=== PATIENT | male | born 1950 | race Caucasian/White ===

== ENCOUNTER 2023-02-01 10:20 | Emergency (ER) | payer MEDICARE, OTHER ==
[2023-02-01 10:47] VITALS: PULSE 98
[2023-02-01] MEDS ORDERED: Sodium Chloride 0.9% 10 ML Syringe FLUSH PRN (11:11)
[2023-02-01 11:27] LABS: HEMATOCRIT 41.7 % (38.4-49.7); MEAN CORPUSCULAR HEMOGLOBIN 30.8 pg (31.6-35.5); MEAN CORPUSCULAR HGB CONC 33.6 g/dL (31.6-35.5); MEAN CORPUSCULAR VOLUME 91.9 fL (81.4-99.0); RED BLOOD CELL COUNT 4.54 M/uL (4.14-5.76); WHITE BLOOD CELL COUNT,WBC 9.1 K/uL (3.2-11.0)
[2023-02-01 11:53] LABS: CALCIUM 9.1 mg/dL (8.5-10.1); CREATININE 1.4 mg/dL (0.8-1.3); EST CRCL DRUG DOSING (CG) 46.99 mL/min; MAGNESIUM 1.8 mg/dL (1.8-2.4); POTASSIUM,K 3.3 mmol/L (3.6-5.2)
[2023-02-01 11:57] LABS: ANION GAP 12.3 mmol/L (5.0-14.0)
[2023-02-01 11:58] LABS: TROPONIN I HIGH SENSITIVITY 70.5 pg/mL (<=60.3)
[2023-02-01] MEDS ORDERED: Potassium Chloride 20 MEQ Tab.ER PO ONE (12:13)
[2023-02-01 12:53] VITALS: BP 107/66
== END 2023-02-01 13:04 | disposition home or self-care (01) ==
LOC: JP.ED 10:20
DX: I95.9 Hypotension, unspecified (principal); I11.0 Hypertensive heart disease with heart failure; I50.9 Heart failure, unspecified; I25.2 Old myocardial infarction; Z95.1 Presence of aortocoronary bypass graft; Z79.82 Long term (current) use of aspirin; Z88.2 Allergy status to sulfonamides; Z88.5 Allergy status to narcotic agent
CPT/HCPCS: 36415; 80048; 83735; 83880; 84484; 85027; 93005; 99285; A9270; J3490

== ENCOUNTER 2023-10-09 10:59 | Emergency (ER) | payer MEDICARE, OTHER ==
[2023-10-09 11:20] LABS: BASOPHILS ABSOLUTE AUTO 0.05 K/uL (0.00-0.10); BASOPHILS PERCENT AUTO 0.7 % (0.1-1.3); EOSINOPHILS ABSOLUTE AUTO 0.23 K/uL (0.00-0.40); EOSINOPHILS PERCENT AUTO 3.2 % (0.0-5.4); HEMATOCRIT 33.9 % (38.4-49.7); HEMOGLOBIN 11.6 g/dL (12.9-16.9); IMMATURE GRAN ABSOLUTE AUTO 0.02 K/uL (0.00-0.23); IMMATURE GRAN PERCENT AUTO 0.3 % (0.0-0.7); LYMPHOCYTES ABSOLUTE AUTO 1.09 K/uL (0.8-3.3); LYMPHOCYTES PERCENT AUTO 15.1 % (11.4-47.7); MEAN CORPUSCULAR HEMOGLOBIN 32.5 pg (31.6-35.5); MEAN CORPUSCULAR HGB CONC 34.2 g/dL (31.6-35.5); MONOCYTES ABSOLUTE AUTO 0.41 K/uL (0.20-0.90); MONOCYTES PERCENT AUTO 5.7 % (3.3-12.6); PLATELET COUNT,PLT 163 K/uL (130-375); RED BLOOD CELL COUNT 3.57 M/uL (4.14-5.76); WHITE BLOOD CELL COUNT,WBC 7.2 K/uL (3.2-11.0)
[2023-10-09 11:32] LABS: BLOOD UREA NITROGEN,BUN 30 mg/dL (7-18); CALCIUM 9.5 mg/dL (8.5-10.1); CARBON DIOXIDE,CO2 28 mmol/L (21-32); CHLORIDE,CL 101 mmol/L (100-108); CREATININE 1.3 mg/dL (0.8-1.3); ESTIMATED GFR 58 mL/min (>60); GLUCOSE RANDOM 142 mg/dL (74-106); MAGNESIUM 2.5 mg/dL (1.8-2.4); POTASSIUM,K 3.8 mmol/L (3.6-5.2); SODIUM,NA 138 mmol/L (140-148); TROPONIN I HIGH SENSITIVITY 47.9 pg/mL (<=60.3)
[2023-10-09 11:32] LABS: BASE EXCESS VENOUS 3.1 mm/L; BICARBONATE,VENOUS 27.1 mmol/L; O2 SATURATION VENOUS 45.6; OXYHEMOGLOBIN 43.8 %; PCO2 VENOUS 41.2 mm/Hg; PH,VENOUS 7.434 (7.350-7.450); PO2 VENOUS 28.7 mm/Hg; TOTAL HEMOGLOBIN 12.1 g/dL (13.5-18.0)
[2023-10-09 11:33] LABS: ANION GAP 12.8 mmol/L (5.0-14.0)
[2023-10-09] MEDS: Prochlorperazine 10 MG/2 ML SDV IVPUSH ONE (12:42)
[2023-10-09] MEDS: Sodium Chloride 0.9% 1,000 ML IV SCH (12:49)
[2023-10-09] MEDS ORDERED: Sodium Chloride 0.9% 10 ML Syringe FLUSH PRN (14:36)
[2023-10-09] MEDS ORDERED: Iopamidol 755 Mg/ML 100 ML Bottle IV SCH (14:45)
[2023-10-09] MEDS ORDERED: Sodium Chloride 0.9% 100 ML IV SCH (14:45)
[2023-10-09 15:17] VITALS: BP 142/87; PULSE 72
== END 2023-10-09 15:25 | disposition home or self-care (01) ==
LOC: JP.ED 10:59
DX: E86.0 Dehydration (principal); I11.0 Hypertensive heart disease with heart failure; I50.9 Heart failure, unspecified; Z95.1 Presence of aortocoronary bypass graft; I25.2 Old myocardial infarction; Z88.2 Allergy status to sulfonamides; Z79.82 Long term (current) use of aspirin; Z88.5 Allergy status to narcotic agent; Z79.02 Long term (current) use of antithrombotics/antiplatelets; Z79.899 Other long term (current) drug therapy; Z95.5 Presence of coronary angioplasty implant and graft; Z95.0 Presence of cardiac pacemaker
CPT/HCPCS: 36415; 70450; 71045; 80048; 82803; 83735; 84484; 85025; 87040; 93005; 96361; 96374; 99285; J0780; J7030

== ENCOUNTER 2025-02-15 13:05 | Inpatient (IN) | payer MEDICARE, OTHER ==
[2025-02-15 15:11] LABS: APPEARANCE,URINE CLEAR (CLEAR); GLUCOSE,URINE NEGATIVE (NEGATIVE); OCCULT BLOOD,URINE TRACE-INTACT (NEGATIVE)
[2025-02-15 15:13] LABS: UROTHELIAL CELLS,URINE NOT SEEN /HPF
[2025-02-15 15:14] LABS: SQUAMOUS EPITHELIAL CELLS,UR FEW /HPF
[2025-02-15 15:34] LABS: BASOPHILS ABSOLUTE AUTO 0.04 K/uL (0.00-0.10); BASOPHILS PERCENT AUTO 0.7 % (0.1-1.3); EOSINOPHILS ABSOLUTE AUTO 0.19 K/uL (0.00-0.40); EOSINOPHILS PERCENT AUTO 3.5 % (0.0-5.4); IMMATURE GRAN PERCENT AUTO 0.4 % (0.0-0.7); LYMPHOCYTES ABSOLUTE AUTO 0.55 K/uL (0.8-3.3); LYMPHOCYTES PERCENT AUTO 10.2 % (11.4-47.7); MONOCYTES ABSOLUTE AUTO 0.54 K/uL (0.20-0.90); MONOCYTES PERCENT AUTO 10.1 % (3.3-12.6); NEUTROPHILS ABSOLUTE AUTO 4.03 K/uL (1.0-7.6); NEUTROPHILS PERCENT AUTO 75.1 % (40.0-78.1); PLATELET COUNT,PLT 89 K/uL (130-375); RED BLOOD CELL COUNT 3.57 M/uL (4.14-5.76); WHITE BLOOD CELL COUNT,WBC 5.4 K/uL (3.2-11.0)
[2025-02-15 15:35] LABS: IMMATURE GRAN ABSOLUTE AUTO 0.02 K/uL (0.00-0.23)
[2025-02-15] MEDS ORDERED: Sodium Chloride 0.9% 10 ML Syringe FLUSH PRN (15:48)
[2025-02-15 16:04] LABS: A/G RATIO 0.8 (1.2-2.2); ALANINE AMINOTRANSFERASE,ALT 29 U/L (12-78); ASPARTATE AMNIOTRANSFERASE,AST 30 U/L (15-37); BILIRUBIN TOTAL 2.8 mg/dL (0.2-1.0); BLOOD UREA NITROGEN,BUN 40 mg/dL (7-18); CARBON DIOXIDE,CO2 26 mmol/L (21-32); CHLORIDE,CL 103 mmol/L (100-108); CREATININE 1.7 mg/dL (0.8-1.3); ESTIMATED GFR 41 mL/min (>60); GLUCOSE RANDOM 101 mg/dL (74-106); POTASSIUM,K 3.7 mmol/L (3.6-5.2); PRO B-TYPE NATRIUR PEPT,BNPPRO 4795 pg/mL (5-450); PROTEIN TOTAL,TP 7.8 g/dL (6.4-8.2); SODIUM,NA 140 mmol/L (140-148)
[2025-02-15] MEDS: Furosemide 40 MG/4 ML VIAL IVPUSH ONE (16:49)
[2025-02-15] MEDS: Bumetanide 2.5 MG/10 ML MDV IVPUSH SCH (19:32)
[2025-02-15 19:52] LABS: BLOOD UREA NITROGEN,BUN 41.0 mg/dL (7-18); CARBON DIOXIDE,CO2 25.0 mmol/L (21-32); CHLORIDE,CL 103.0 mmol/L (100-108); CREATININE 1.6 mg/dL (0.8-1.3); EST CRCL DRUG DOSING (CG) 39.28 mL/min; ESTIMATED GFR 44.0 mL/min (>60); GLUCOSE RANDOM 98.0 mg/dL (74-106); POTASSIUM,K 3.7 mmol/L (3.6-5.2); SODIUM,NA 140.0 mmol/L (140-148)
[2025-02-15] MEDS: Heparin Sodium 5,000 Units/ML Vial SUBCUT SCH (21:20)
[2025-02-16 05:39] LABS: PLATELET COUNT,PLT 86.0 K/uL (130-375); RED BLOOD CELL COUNT 3.3 M/uL (4.14-5.76); WHITE BLOOD CELL COUNT,WBC 5.0 K/uL (3.2-11.0)
[2025-02-16 08:12] LABS: BLOOD UREA NITROGEN,BUN 40.0 mg/dL (7-18); CARBON DIOXIDE,CO2 25.0 mmol/L (21-32); CHLORIDE,CL 103.0 mmol/L (100-108); CREATININE 1.6 mg/dL (0.8-1.3); EST CRCL DRUG DOSING (CG) 39.28 mL/min; ESTIMATED GFR 44.0 mL/min (>60); GLUCOSE RANDOM 100.0 mg/dL (74-106); POTASSIUM,K 4.1 mmol/L (3.6-5.2); SODIUM,NA 140.0 mmol/L (140-148)
[2025-02-16] MEDS: Bumetanide 2.5 MG/10 ML MDV IVPUSH SCH (14:57)
[2025-02-17 05:56] LABS: PLATELET COUNT,PLT 73.0 K/uL (130-375); RED BLOOD CELL COUNT 3.44 M/uL (4.14-5.76); WHITE BLOOD CELL COUNT,WBC 4.8 K/uL (3.2-11.0)
[2025-02-17 14:32] LABS: BLOOD UREA NITROGEN,BUN 38.0 mg/dL (7-18); CARBON DIOXIDE,CO2 23.0 mmol/L (21-32); CHLORIDE,CL 104.0 mmol/L (100-108); CREATININE 1.5 mg/dL (0.8-1.3); EST CRCL DRUG DOSING (CG) 41.9 mL/min; ESTIMATED GFR 48.0 mL/min (>60); GLUCOSE RANDOM 99.0 mg/dL (74-106); POTASSIUM,K 3.5 mmol/L (3.6-5.2); SODIUM,NA 139.0 mmol/L (140-148)
[2025-02-17] MEDS: Potassium Chloride 20 MEQ Tab.ER PO ONE (17:16)
[2025-02-17 17:20] LABS: BLOOD UREA NITROGEN,BUN 40.0 mg/dL (7-18); CARBON DIOXIDE,CO2 26.0 mmol/L (21-32); CHLORIDE,CL 102.0 mmol/L (100-108); CREATININE 1.5 mg/dL (0.8-1.3); EST CRCL DRUG DOSING (CG) 41.9 mL/min; ESTIMATED GFR 48.0 mL/min (>60); GLUCOSE RANDOM 108.0 mg/dL (74-106); POTASSIUM,K 3.5 mmol/L (3.6-5.2); SODIUM,NA 139.0 mmol/L (140-148)
[2025-02-18 05:41] LABS: PLATELET COUNT,PLT 84.0 K/uL (130-375); RED BLOOD CELL COUNT 3.61 M/uL (4.14-5.76); WHITE BLOOD CELL COUNT,WBC 5.0 K/uL (3.2-11.0)
[2025-02-18 06:04] LABS: BILIRUBIN TOTAL 2.4 mg/dL (0.2-1.0); BLOOD UREA NITROGEN,BUN 39.0 mg/dL (7-18); CARBON DIOXIDE,CO2 26.0 mmol/L (21-32); CHLORIDE,CL 102.0 mmol/L (100-108); CREATININE 1.5 mg/dL (0.8-1.3); EST CRCL DRUG DOSING (CG) 41.9 mL/min; ESTIMATED GFR 48.0 mL/min (>60); GLUCOSE RANDOM 96.0 mg/dL (74-106); POTASSIUM,K 3.9 mmol/L (3.6-5.2); SODIUM,NA 139.0 mmol/L (140-148)
[2025-02-18] MEDS ORDERED: Sodium Chloride 0.9% 10 ML Syringe IV PRN (09:22)
[2025-02-18 17:12] LABS: BLOOD UREA NITROGEN,BUN 41.0 mg/dL (7-18); CARBON DIOXIDE,CO2 27.0 mmol/L (21-32); CHLORIDE,CL 101.0 mmol/L (100-108); CREATININE 1.4 mg/dL (0.8-1.3); EST CRCL DRUG DOSING (CG) 44.89 mL/min; ESTIMATED GFR 52.0 mL/min (>60); GLUCOSE RANDOM 104.0 mg/dL (74-106); POTASSIUM,K 3.7 mmol/L (3.6-5.2); SODIUM,NA 138.0 mmol/L (140-148)
[2025-02-18] MEDS: Potassium Chloride 20 MEQ Tab.ER PO ONE (20:36)
[2025-02-19 05:53] LABS: PLATELET COUNT,PLT 93.0 K/uL (130-375); RED BLOOD CELL COUNT 3.66 M/uL (4.14-5.76); WHITE BLOOD CELL COUNT,WBC 5.5 K/uL (3.2-11.0)
[2025-02-19 06:14] LABS: BILIRUBIN TOTAL 2.5 mg/dL (0.2-1.0); BLOOD UREA NITROGEN,BUN 40.0 mg/dL (7-18); CARBON DIOXIDE,CO2 27.0 mmol/L (21-32); CHLORIDE,CL 98.0 mmol/L (100-108); CREATININE 1.4 mg/dL (0.8-1.3); EST CRCL DRUG DOSING (CG) 44.89 mL/min; ESTIMATED GFR 52.0 mL/min (>60); GLUCOSE RANDOM 96.0 mg/dL (74-106); POTASSIUM,K 3.7 mmol/L (3.6-5.2); SODIUM,NA 135.0 mmol/L (140-148)
[2025-02-19 11:23] VITALS: BP 133/89; PULSE 70
[2025-02-20 20:22] LABS: HAPTOGLOBIN 136 mg/dL (30-200)
== END 2025-02-19 12:06 | disposition home or self-care (01) | DRG 291 ==
LOC: JP.ED 13:05 → JP.MS 17:06
PROVIDERS: ADMIT Student in an Organized Health Care Education/Training Program; ATTEND Internal Medicine
DX: I13.0 Hypertensive heart and chronic kidney disease with heart failure and stage 1 through stage 4 chronic kidney disease, or unspecified chronic kidney disease (principal); I50.43 Acute on chronic combined systolic (congestive) and diastolic (congestive) heart failure; N17.9 Acute kidney failure, unspecified; I25.5 Ischemic cardiomyopathy; H54.7 Unspecified visual loss; I25.118 Atherosclerotic heart disease of native coronary artery with other forms of angina pectoris; N18.31 Chronic kidney disease, stage 3a; D69.6 Thrombocytopenia, unspecified; I25.2 Old myocardial infarction; Z88.8 Allergy status to other drugs, medicaments and biological substances; Z88.2 Allergy status to sulfonamides; Z79.899 Other long term (current) drug therapy; Z79.82 Long term (current) use of aspirin; Z95.0 Presence of cardiac pacemaker; Z79.01 Long term (current) use of anticoagulants; Z95.5 Presence of coronary angioplasty implant and graft; Z86.79 Personal history of other diseases of the circulatory system; Z95.1 Presence of aortocoronary bypass graft
CPT/HCPCS: 36415; 71045; 71045-26; 80048; 80053; 81001; 82247; 83010; 83615; 83735; 83880; 85025; 85027; 85384; 88104; 96374; 99223; 99232; 99238; 99285-25; A9270-GY; J0696; J1938; J1939